=== PATIENT | female | born 1980 | race Caucasian/White ===

== ENCOUNTER → 2023-07-01 14:17 | Outpatient (REF) | payer BC, SELFPAY | LOC: WDC 14:17 | PROVIDERS: ATTENDING PHYSICIAN Physician Assistant Medical | DX: Z12.31 Encounter for screening mammogram for malignant neoplasm of breast (principal) | CPT/HCPCS: 77063; 77067 ==

== ENCOUNTER → 2023-07-03 10:59 | Outpatient (REF) | payer BC, SELFPAY | LOC: HWRAD 10:59 | PROVIDERS: ATTENDING PHYSICIAN Physician Assistant Medical | DX: R10.11 Right upper quadrant pain (principal); R10.9 Unspecified abdominal pain | CPT/HCPCS: 74177; Q9967 ==

== ENCOUNTER 2024-03-30 23:14 | Emergency (ER) | payer BC, SELFPAY ==
[2024-03-30 23:14] VITALS: BMI 25.5
[2024-03-30 23:20] VITALS: BP 162/98
[2024-03-30 23:48] LABS: % Basophils 0.8 % (0-2); % Eosinophils 1.6 % (0-6); % Immature Granulocytes 0.5 % (0-0.5); % Lymphocytes 39.3 % (20.5-51.1); % Neutrophils 46.8 % (42.2-75.2); Absolute Basophils 0.1 10^3/uL (0-0.2); Absolute Eosinophils 0.1 10^3/uL (0-0.7); Absolute Lymphocytes 3.4 10^3/uL (1.2-3.4); Hemoglobin 12.8 g/dL (12.0-16.0); Mean Corp Hgb Conc. 34.6 g/dL (33.0-37.0); Mean Corpuscular Hgb 28.9 pg (27.0-31.0); Mean Corpuscular Volume 83.5 fL (81.0-99.0); Mean Platelet Volume 9.3 fL (7.4-10.4); Nucleated Red Blood Cells % 0 %; Platelet Count 267 10^3/uL (130-400); Red Blood Cell Count 4.43 10^6/uL (4.20-5.40); Red Cell Dist. Width 13.2 % (11.5-14.5); White Blood Cell Count 8.6 10^3/uL (4.8-10.8)
[2024-03-30 23:50] VITALS: BP 153/96
[2024-03-31] VITALS: BP 147/94
[2024-03-31 00:01] LABS: ALT (SGPT) 16 U/L (0-35); AST (SGOT) 29 U/L (14-36); Albumin 4.7 g/dl (3.5-5.0); Alkaline Phosphatase 134 U/L (38-126); Blood Urea Nitrogen 14 mg/dl (7-17); Carbon Dioxide 27 mmol/L (22-30); Chloride 101 mmol/L (98-107); Estimated Creatinine Clearance 73 ml/min; Glucose 105 mg/dl (70-99); Lipase 104 U/L (23-300); Potassium 3.4 mmol/L (3.5-5.1); Sodium 138 mmol/L (135-145); Total Bilirubin 0.4 mg/dl (0.2-1.3); Total Protein 7.2 g/dl (6.3-8.2); eGFR > 60.00
--- NOTE | 2024-03-31 00:39 | ED.GENMED ---
History of Present Illness
General
Chief Complaint: Abdominal Pain
Source: patient
Exam Limitations: none
Time Seen by Provider: 03/31/24 00:11
Nursing documentation reviewed up to this point in time: agreed with
History of Present Illness
History of Present Illness:
43 y/o F with h/o anxiety
liver hemangioma
here with epigastirc pain x 2 days which was initially coming and goign an then the past 12 hours has been constant with gera. she is concerned about her gallbladder
she has no exertional symptoms, no vomiting, fever, cp, sob, leg swelling/pain, PE RF
no fhx of premature CAD
never had pain like this before, but tried nexium which she sometimes teakes for reflux
no improvement
foermer smoker
h/o IBS.
Past History
Past History
ED Past Medical History: Psychiatric (anxiety, depression) and Other (IBS, liver hemangioma)
Social History
Tobacco: Non-smoker
Review of Systems
Review of Systems
Allergies reviewed?: Yes
All Other Systems: Not applicable
Phy Exam
Physical Exam
Physical Exam:
GENERAL: Alert , in no apparent distress
EYE: pupils equal and reactive
NECK: Supple
ENT: o/p clr, mmm.
CARDIAC: Regular rate and rhythm . (tachy when i'm in the room then goes down to 90s)
LUNGS: Clear breath sounds bilaterally, no acute respiratory distress, no wheezes/rales/rhonchi
ABDOMEN: Soft, very mild epigastric tendrness, neg jose's sign, no r/g, no cvat, normal bowel sounds
NEUROLOGICAL: Alert and oriented, no focal neuro deficits
SKIN: Warm and dry, skin intact.
MUSCULOSKELETAL: No edema, well perfused. neg gilmar's sign
PSYCH: Normal and appropriate interaction.
Scores
Heart Score for Chest Pain Patients
STEMI patient?: No
History: Slightly or Non-Suspicious
ECG: Normal
Age: </= 45 years
Risk Factors: No Risk Factors
Troponin: </= Normal Limit
Heart Score for Chest Pain Patients: 0
Heart Score Risk: 2.5% MACE over next 6 weeks
Course
Orders/Labs/Results
Orders:
Orders
03/30/24 23:27
Complete Blood Count/With Diff Urgent
Comprehensive Metabolic Panel Urgent
Lipase Urgent
03/31/24 00:36
Electrocardiogram (*1) Urgent
Reason for Study: Chest Pain
EKG- Treatment ONCE
US Abdomen Complete/Upper Urgent
Comment:
Reason For Exam: epigastirc pain
03/31/24 00:40
Mag Hydrox/Al Hydrox/Simeth [Maalox] 30 ml Phenobarb/Hyoscy/Atropine/Scop [] 10 ml PO NOW
03/31/24 01:00
Mag Hydrox/Al Hydrox/Simeth [Maalox] 30 ml .ROUTE .STK-MED ONE
Phenobarb/Hyoscy/Atropine/Scop [] 10 ml .ROUTE .STK-MED ONE
03/31/24 01:08
Troponin I Urgent
03/31/24 02:10
Famotidine [Pepcid] 20 mg PO NOW STA
Abnormal Lab Results
03/30/24
23:27
Absolute Monos (auto) 1.0 H 10^3/uL
(0.1-0.6)
Monocytes % 11.0 H %
(1.7-9.3)
Potassium 3.4 L mmol/L
(3.5-5.1)
Glucose 105 H mg/dl
(70-99)
Alkaline Phosphatase 134 H U/L
(38-126)
03/30/24 23:27
03/30/24 23:27
Vital Signs
Initial and Last Documented VS:
Initial Vital Signs
Temp Pulse Resp BP Pulse Ox
98.0 F 119 20 162/98 100
03/30/24 23:20 03/30/24 23:20 03/30/24 23:20 03/30/24 23:20 03/30/24 23:20
Last Documented Vital Signs
Temp Pulse Resp BP Pulse Ox
98.0 F 96 26 112/82 99
03/30/24 23:20 03/31/24 01:35 03/31/24 01:35 03/31/24 01:00 03/31/24 01:35
MDM/Problems Addressed
Differential Diagnosis Includes:
GERD, gastritis, PUD, less likely cholelthiais, ACS, unlikely PE
MDM/Problems Addressed:
43 y/o F with h/o GERD
here with epigastric kailyn x 2 days burning radiating to back initlaly intermittnet and now constant
no relief with nexium
not exertional, not pleuritic, no sob or chest pain
no fever/chills, vomiting, diarrhea
pt is concenred about gb
she has low cardiac risk
heart score 0
ekg nonischemic
trop neg
minimal tranaminase elevation
lipse normal
pt take wegovy
will order US
but suspect gastritis/PUD
will start pepcid bid
FEELS A LITTLE BETTER 0210
US NEG.
return preautions
*Critical Care Note
Total Time (30-74mins, 75-104mins- exclusive of procedures): Not Applicable
ED Attending Note
-
Portions of this chart may have been created with voice recognition software.� Occasional wrong word or��sound alike� substitutions may have occurred due to the inherent limitations of voice recognition software.
Discharge Plan
Departure
Patient Disposition: Home (Routine Discharge)
Date of Disposition: 03/31/24
Time of Disposition: 02:06
Patient with high blood pressure during this ER visit?: No
Condition: Fair
Covid-19: Not Applicable
Discharge Problem:
Epigastric abdominal pain
Instructions: Gastritis (DC), Abdominal Pain
Prescriptions:
New
famotidine [Pepcid] 20 mg tablet
20 mg PO BID Qty: 20 0RF
Referrals:
Denisa Seymour PA-C [Family Provider] - Follow up in 2-3 days
Activity Restrictions/Additional Instructions:
WE ARE NOT SURE THE CAUSE OF YOUR PAIN BUT IT COULD BE INFLAMMATION O FYOUR STOMACH
TRY PEPCID TWICE A DAY FOR 7-10 DAYS
AVOID ACIDIC FOODS, ALCOHOL, CAFFEINE FOR A FEW DAYS
YOUR EKG AND TROPONIN WERE NEGATIVE, SUGGESTING THIS IS NOT A CARDIAC PROBLEM
YOU DO HAVE A HEMAGIOMA OF YOUR LIVER, FOLLOW UP WITH YOUR DOCTOR FOR THIS DIRECTED
RETURN FOR: SEVERE PAIN, CHEST PAIN, SHORTNESS OF BREAHT, VOMITNGN, BLACK STOOL, FEVER OR ANY COCNERNS
Interventions
Interventions:
*Risk Screen - Suicide Last Done: 03/30/24 23:20
*General Assessment Last Done: 03/30/24 23:51
*Neglect/Abuse Screening Last Done: 03/30/24 23:20
*ED COVID-19 Vaccine History Last Done: 03/30/24 23:20
BP-Mhzvnl-Kswxmrfjvr Assessment Last Done: 03/30/24 23:52
Discharge Date and Time
Print Language: SLOVAK
[2024-03-31 01:00] VITALS: BP 112/82
[2024-03-31] MEDS: MAALOX 40 PO (01:02)
[2024-03-31 01:35] VITALS: BP 125/85
[2024-03-31 01:52] LABS: Troponin I < 0.012 ng/ml
[2024-03-31 02:00] VITALS: BP 120/86
[2024-03-31] MEDS: PEPCID 20 MG PO (02:17)
== END 2024-03-31 02:29 | disposition home or self-care (01) ==
LOC: EMR 23:14
PROVIDERS: Emergency Medicine; Physician Assistant; EMERGENCY PHYSICIAN Emergency Medicine; FAMILY PHYSICIAN Physician Assistant Medical
DX: R10.13 Epigastric pain (principal); D18.03 Hemangioma of intra-abdominal structures; K21.9 Gastro-esophageal reflux disease without esophagitis; K58.9 Irritable bowel syndrome, unspecified
CPT/HCPCS: 99284; 76700; 80053; 83690; 84484; 85025; 93005

== ENCOUNTER 2024-08-25 06:22 | Day surgery (SDC) | payer BC, SELFPAY | END 2024-08-25 11:36 | disposition home or self-care (01) | LOC: GI 06:22 | PROVIDERS: ATTENDING PHYSICIAN Internal Medicine | DX: Z12.11 Encounter for screening for malignant neoplasm of colon (principal); D12.5 Benign neoplasm of sigmoid colon; K57.30 Diverticulosis of large intestine without perforation or abscess without bleeding; K64.9 Unspecified hemorrhoids; Z86.0100 Personal history of colon polyps, unspecified | CPT/HCPCS: 45385 ==

== ENCOUNTER → 2024-12-12 07:52 | Outpatient (REF) | payer BC, SELFPAY | LOC: MRI 3T 07:52 | PROVIDERS: ATTENDING PHYSICIAN Internal Medicine; FAMILY PHYSICIAN Physician Assistant Medical | DX: R10.9 Unspecified abdominal pain (principal); K76.9 Liver disease, unspecified; R63.4 Abnormal weight loss | CPT/HCPCS: 72197; 74183; A9575 ==

== ENCOUNTER 2025-02-27 09:20 | Emergency (ER) | payer BC, SELFPAY ==
[2025-02-27 09:27] VITALS: BP 126/87
--- NOTE | 2025-02-27 10:14 | ED.GENMED ---
History of Present Illness
General
Chief Complaint: Abdominal Pain
Source: patient
Time Seen by Provider: 02/27/25 10:04
History of Present Illness
History of Present Illness:
44-year-old female with past medical history of IBS, anxiety and depression presenting to the emergency department for evaluation of right lower quadrant abdominal pain x 3 days, not any worse today but patient states that she has a history of some
inflammatory changes to her appendix and some chronic abdominal pain that has been ongoing without any clear etiology, scheduled to see Dr. Clements in 2 weeks for possible surgical planning, wanted to ensure she is not having any changes to her
appendix or an acute complication. Patient states the only other symptom she is experiencing is some pressure while attempting to urinate but denies any dysuria, urinary frequency/urgency, back pain, fevers, chills, rigors, nausea or vomiting,
bowel changes or any other concerns. She has attempted Motrin/Tylenol in the past for this pain but has not had relief with this so did not take anything over the last 3 days. Pain currently a 3 out of 10 and tolerable, declining anything for the
pain
Past History
Past History
ED Past Medical History: Psychiatric (anxiety, depression) and Other (IBS, liver hemangioma)
ED Past Surgical History: and Other
Social History
Tobacco: Non-smoker
Alcohol: None
Drug: None
Personal:
Living: with family
Review of Systems
Review of Systems
All Other Systems: ROS reviewed and negative except as documented in HPI and ROS
Phy Exam
Physical Exam
Physical Exam:
GENERAL: Alert , in no apparent distress
EYE: clear conjunctiva b/l
HEAD: NCAT
ENT: mmm.
CARDIAC: Regular rate and rhythm .
LUNGS: Clear breath sounds bilaterally, no acute respiratory distress, no wheezes/rales/rhonchi
ABDOMEN: Soft, very mild tenderness within the right lower quadrant, no r/g, no cvat, negative Yates sign, no tenderness at McBurney's point
NEUROLOGICAL: Alert and oriented
SKIN: Warm and dry, skin intact.
MUSCULOSKELETAL: well perfused.
PSYCH: Normal and appropriate interaction.
Scores
Heart Failure Risk
Heart Failure Risk Score: Not Applicable
Heart Score for Chest Pain Patients
STEMI patient?: Not applicable
Withdrawal Assessment of Alcohol
Withdrawal Assessment Completed?: Not applicable
Course
Orders/Labs/Results
Orders:
Orders
02/27/25 10:13
Iohexol [Omnipaque] See Protocol PO NOW STA
02/27/25 10:14
CT Abd/pel W Iv And Oral Contr Urgent
Comment:
Reason For Exam: RLQ pain x 3 days
02/27/25 10:23
Complete Blood Count/With Diff Urgent
Comprehensive Metabolic Panel Urgent
Lipase Urgent
Urinalysis Reflex To Culture Urgent
Date Specimen was Collected: 02/27/25
Time Specimen was Collected: 10:17
02/27/25 12:26
Ketorolac [Toradol] 30 mg IV NOW STA
Ondansetron Injectable [Zofran] 4 mg IV NOW STA
Abnormal Lab Results
02/27/25
10:23
Absolute Monos (auto) 0.7 H 10^3/uL
(0.1-0.6)
Monocytes % 11.3 H %
(1.7-9.3)
02/27/25 10:23
02/27/25 10:23
Vital Signs
Initial and Last Documented VS:
Initial Vital Signs
Temp Pulse Resp BP Pulse Ox
98.4 F 105 18 126/87 99
02/27/25 09:27 02/27/25 09:27 02/27/25 09:27 02/27/25 09:27 02/27/25 09:27
Last Documented Vital Signs
Temp Pulse Resp BP Pulse Ox
98.6 F 74 20 133/89 96
02/27/25 11:11 02/27/25 11:11 02/27/25 11:11 02/27/25 13:09 02/27/25 13:30
MDM/Problems Addressed
Differential Diagnosis Includes:
Urinary tract infection
IBS
Appendicitis
Renal/ureteral colic
Patient postmenopausal so I do not have concern for
Ovarian cyst
Pancreatitis
Cholecystitis
MDM/Problems Addressed:
44-year-old female presenting to the emergency department for evaluation of right lower quadrant abdominal pain, undergoing workup for this as there is no specific etiology found but patient does report that there have been some changes around her
appendix on previous imaging, she is most concerned for possible acute appendicitis. Will obtain labs and CT imaging. Patient declining anything for symptoms at present time.
*Pulse Oximetry
SaO2: 99
Oxygen Mode of Delivery: Room air
Patient hypoxic: no
*Critical Care Note
Total Time (30-74mins, 75-104mins- exclusive of procedures): Not Applicable
Data Reviewed
Review of Other/Old Records Reveals: Radiology Studies
Source: patient and records
Comment
Comment:
MRI from 12/12/2024:
IMPRESSION:
No MR evidence of segmental/discontinuous inflammation of the small bowel and/or colon. No apparent obstruction. Constipation with mild to moderate colonic fecal burden.
Mildly distended appendix measuring up to 6.8 mm, though without apparent wall thickening and no periappendiceal inflammatory signal alteration. There is mild enhancement of the appendix wall, which is nonspecific; the possibility of low level
inflammation may be considered in the proper clinical setting.
Relatively stable hepatic hemangiomas.
Patient Management
Escalation/DeEscalation of care consider admission/obs:
CT scan without acute abnormalities. Appendix normal. At this time patient is stable for discharge home and continued outpatient management of her chronic abdominal pain. While no specific etiologies found, no emergent pathologies identified.
ED Attending Note
-
Portions of this chart may have been created with voice recognition software.� Occasional wrong word or��sound alike� substitutions may have occurred due to the inherent limitations of voice recognition software.
Discharge Plan
Departure
Patient Disposition: Home (Routine Discharge)
Date of Disposition: 02/27/25
Time of Disposition: 13:29
Patient with high blood pressure during this ER visit?: No
Discharge Problem:
Abdominal pain
Instructions: Abdominal Pain
Prescriptions:
No Action
bupropion HCl [Wellbutrin SR] 150 mg Tablet Sustained-Release 12 Hr
150 mg PO DAILY
Zepbound 5 mg/0.5 mL Pen Injector
5 mg SC QWEEK
Referrals:
Denisa Seymour PA-C [Family Provider, Family Practice]
Interventions
Interventions:
*Risk Screen - Suicide Last Done: 02/27/25 09:27
*General Assessment Last Done: 02/27/25 09:27
*Neglect/Abuse Screening Last Done: 02/27/25 09:27
*ED- Fall Risk Assessment Last Done: 02/27/25 11:11
*ED COVID-19 Vaccine History Last Done: 02/27/25 11:11
*ED Influenza Vaccine History Last Done: 02/27/25 11:11
*Nursing Disposition Last Done: 02/27/25 13:38
AA-Qrsqkx-Xtcqixbfjy Assessment Last Done: 02/27/25 11:11
Discharge Date and Time
Discharge Date/Time: 02/27/25 13:39
Print Language: NIUEAN
[2025-02-27 10:23] VITALS: BMI 24.8
[2025-02-27] MEDS: OMNIPAQUE 50 ML PO (10:26)
[2025-02-27 10:45] LABS: Hematocrit 37.3 % (37.0-47.0); Hemoglobin 12.4 g/dL (12.0-16.0); Mean Corp Hgb Conc. 33.2 g/dL (33.0-37.0); Mean Corpuscular Volume 86.5 fL (81.0-99.0); Nucleated Red Blood Cells % 0 %; Platelet Count 237 10^3/uL (130-400); Red Cell Dist. Width 12.8 % (11.5-14.5)
[2025-02-27 10:55] LABS: Urine Character Clear (Clear)
[2025-02-27 11:11] VITALS: BP 130/85
[2025-02-27 11:14] LABS: ALT (SGPT) < 10 U/L (0-35); AST (SGOT) 18 U/L (14-36); Albumin 4.2 g/dl (3.5-5.0); Alkaline Phosphatase 88 U/L (38-126); Blood Urea Nitrogen 10 mg/dl (7-17); Calcium 9.0 mg/dl (8.4-10.2); Carbon Dioxide 27 mmol/L (22-30); Chloride 105 mmol/L (98-107); Estimated Creatinine Clearance 83 ml/min; Glucose 91 mg/dl (70-99); Lipase 55 U/L (23-300); Potassium 3.9 mmol/L (3.5-5.1); Sodium 137 mmol/L (135-145); Total Protein 6.8 g/dl (6.3-8.2); eGFR > 60.00
[2025-02-27] MEDS: TORADOL 30 MG IV (13:07)
[2025-02-27] MEDS: ZOFRAN 4 MG IV (13:07)
[2025-02-27 13:09] VITALS: BP 133/89
== END 2025-02-27 13:39 | disposition home or self-care (01) ==
LOC: EMR 09:20
PROVIDERS: Physician Assistant Medical; EMERGENCY PHYSICIAN Emergency Medicine; FAMILY PHYSICIAN Physician Assistant Medical
DX: R10.31 Right lower quadrant pain (principal); G89.29 Other chronic pain; K58.9 Irritable bowel syndrome, unspecified; F41.9 Anxiety disorder, unspecified; F32.A Depression, unspecified; D18.03 Hemangioma of intra-abdominal structures
CPT/HCPCS: 99284; 96374; 96375; 74177; 80053; 81003; 83690; 85025; Q9967